=== PATIENT | female | born 1960 | race Asian ===

== ENCOUNTER 2025-03-29 16:15 | Outpatient (RCR) | payer OTHER, SELFPAY ==
--- NOTE | 2025-03-27 17:51 | PT.OIE ---
Current Diagnoses Other disorders of vestibular function, right ear (03/27/25) Sensorineural hearing loss, bilateral (03/27/25) Visit Care Team Role Provider Type Wil Gutiérrez DO Family Provider Non-Staff Primary Care Provider Specialty: Medical Address: [address] [place] [address] , [address], [place], [address] Email: Reyes Lazcano MD Attending Provider Physician Referring Provider Specialty: Ear, Nose, Throat Address: [address] [place] [address], [address] Email: [email or web address] Physical Therapy Initial Evaluation PT-OP-A Visit Information Start: 03/27/25 17:18 Freq: Status: Active Protocol: Document 03/27/25 16:15 DCW (Rec: 03/27/25 17:33 DCW [id number]) Out-Patient Physical Therapy Visit Information Visit Information Visit Type Initial Evaluation Visit Start Time 16:15 Visit Stop Time 17:05 Visit Number 1 Number of CLOTH CARRIER Visits 0 Evaluation Information Evaluation Date 03/27/25 PT-OP-B Current Condition Start: 03/27/25 17:18 Freq: Status: Active Protocol: Document 03/27/25 16:15 DCW (Rec: 03/27/25 17:33 DCW [id number]) Current Condition History of Current Condition Onset Date 2020 Current Complaints spinning, nausea, dizziness History of Current Pt is a 64 year old female presenting with a four year Condition history of occasional episodes of spinning, dizziness, and nausea. Symptoms worse with head movements and turning. Pt notes symptoms typically last hours, will usually go to sleep and they're better when she wakes up. Was previously seen in PT for four visits in 2022, provided with self-Jadyn and BDEs, which appear to have helped decrease frequency, however symptoms largely remain. VNG performed on 11/22/24, which uncovered a 38% right unilateral caloric weakness, as well as an audiogram showing right asymmetrical sensorineural hearing loss. PT-OP-C Subjective Start: 03/27/25 17:18 Freq: Status: Active Protocol: Document 03/27/25 16:15 DCW (Rec: 03/27/25 17:33 [facility] [id number]) OP-PT Subjective Patient Comments Patient Comments Pt brings in a detailed list of symptoms, with date, time, place, symptoms, and what she was doing at the time. Lists four episodes in 2020, six in 2021, 11 in 2022, seven in 2023, and only one so far in 2024. Patient Reported Improving Progress Patient Questionnaires Dizziness Handicap Inventory DHI Score 82% Other Questionnaire Name Falls Efficacy Scale - International: 26/64 and Score PT-OP-O Vestibular Start: 03/27/25 17:18 Freq: Status: Active Protocol: Document 03/27/25 16:15 DCW (Rec: 03/27/25 17:38 [facility] [id number]) Vestibular Assessment Auditory Tests Fu Test Within normal limits Rinne Test Negative Air Conduction Equal Results Visual Testing Smooth Pursuits Inconclusive Horizontal Smooth Pursuits Inconclusive Vertical Saccades Horizontal WNL Saccades Vertical WNL Heave Test Positive Right Thrust Head Positive Right Kel String Test WNL Positional Testing Ladi-Hallpike Negative Left,Negative Right Rolling Test Negative Left,Negative Right PT-OP-Q Treatments Start: 03/27/25 17:18 Freq: Status: Active Protocol: Document 03/27/25 16:15 DCW (Rec: 03/27/25 17:38 [facility] [id number]) Neuro Re-Education Treatment Vestibular Rehabilitation Corrective Saccades Details Eyes, then head Distance From Target Arm's length Speed as tolerated Position Seated X2 Viewing Details Head and target moving in opposite directions Distance From Target Arm's length Speed as tolerated Position Seated X1 Viewing Details Static target with head turns Distance From Target Arm's length Speed as tolerated Position Seated VOR Retraining Details Target and head move together Distance From Target Arm's length Speed as tolerated Position Seated PT-OP-T Assessment and Plan Start: 03/27/25 17:18 Freq: Status: Active Protocol: Document 03/27/25 16:15 DCW (Rec: 03/27/25 17:51 [facility] [id number]) Physical Therapy Assessment Rehab Potential Rehabilitation Good Potential Evaluation Complexity Number of Personal 3 or More Factors/ Comorbidities Number of Body 4 or More Systems Impaired Clinical Unstable Presentation at Evaluation Impairments Impairments Balance,Functional Activities,Functional Mobility, Vestibular,Visual Motor Goals Two Impairment Pt experiences symptoms with quick head movements Snf Goal (LTG) Pt to report being asymptomatic for the period of one full month LTG Duration 05/28/25 One Impairment Pt does not have an appropriate home exercise program Short Term Goal (STG Pt to be independent and compliant with an appropriate ) HEP STG Duration 04/27/25 Assessment Summary Assessment Pt presents with signs and symptoms consistent with referring diagnosis of right vestibulopathy. Pt experiences subjective symptoms of unsteadiness, dizziness, imbalance, and nausea, typically with quick head movements. Pt VNG suggestive of right-sided Labyrinthitis, which assessment today corroborates. Pt will likely benefit from vestibular therapy focusing on adaptation/habituation exercises, balance training, and functional mobility. Pt tolerated new HEP exercises well. Physical Therapy Plan Frequency and Duration Frequency of 2x/Week Treatment Plan of Care Start 03/27/25 Date Plan of Care End 05/28/25 Date Therapeutic Interventions Therapeutic Balance Training,Canalithic Repositioning,Gait Training Interventions ,Home Exercise Program,Manual Therapy,Neuromuscular Re- education,Patient/Caregiver Education,Self-Care/Home Management,Soft Tissue Mobilization,Therapeutic Activities,Therapeutic Exercises,Vestibular Rehabilitation Next Visit Focus/Plan Next Note Type Treatment Note Next Visit Plan Vestibular rehab, oculomotor exercises, balance training
--- NOTE | 2025-03-27 17:51 | PT.OPPOC ---
Physical, Occupational & Speech Therapy At [facility] Current Diagnoses Other disorders of vestibular function, right ear (03/27/25) Sensorineural hearing loss, bilateral (03/27/25) Visit Care Team Role Provider Type Wil Gutiérrez DO Family Provider Non-Staff Primary Care Provider Specialty: Medical Address: [address] [place], [place] [address], [address], [place], [address] Email: Reyes Lazcano MD Attending Provider Physician Referring Provider Specialty: Ear, Nose, Throat Address: [address] [place] [address], [address] Email: [email or web address] Plan Of Care PT-OP-B Current Condition Start: 03/27/25 17:18 Freq: Status: Active Protocol: Document 03/27/25 16:15 DCW (Rec: 03/27/25 17:33 DCW [id number]) Current Condition History of Current Condition Onset Date 2020 Current Complaints spinning, nausea, dizziness History of Current Pt is a 64 year old female presenting with a four year Condition history of occasional episodes of spinning, dizziness, and nausea. Symptoms worse with head movements and turning. Pt notes symptoms typically last hours, will usually go to sleep and they're better when she wakes up. Was previously seen in PT for four visits in 2022, provided with self-Jadyn and BDEs, which appear to have helped decrease frequency, however symptoms largely remain. VNG performed on 11/22/24, which uncovered a 38% right unilateral caloric weakness, as well as an audiogram showing right asymmetrical sensorineural hearing loss. 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 Pt experiences subjective symptoms of unsteadiness, dizziness, imbalance, and nausea, typically with quick head movements. Pt VNG suggestive of right-sided Labyrinthitis, which assessment today corroborates. Pt will likely benefit from vestibular therapy focusing on adaptation/habituation exercises, balance training, and functional mobility. Pt tolerated new HEP exercises well. Physical Therapy Plan Frequency and Duration Frequency of 2x/Week Treatment Plan of Care Start 03/27/25 Date Plan of Care End 05/28/25 Date Therapeutic Interventions Therapeutic Balance Training,Canalithic Repositioning,Gait Training Interventions ,Home Exercise Program,Manual Therapy,Neuromuscular Re- education,Patient/Caregiver Education,Self-Care/Home Management,Soft Tissue Mobilization,Therapeutic Activities,Therapeutic Exercises,Vestibular Rehabilitation Next Visit Focus/Plan Next Note Type Treatment Note Next Visit Plan Vestibular rehab, oculomotor exercises, balance training Plan of Care Dates Plan of Care Start Date 03/27/25 Plan of Care End Date 05/28/25 Electronically Signed by: Aroldo Mcnally, PT 03/27/25 [id number] If you are in agreement with this Plan of Care, please return a signed and dated copy. I have reviewed this Plan of Care and certify that the skilled therapy services above are required to meet the patient?s needs. Physician Signature Date Printed Name and Credentials Clinical Instructor Signature Printed Name and Credentials
--- NOTE | 2025-03-29 17:12 | PT.OTN ---
Current Diagnoses Other disorders of vestibular function, right ear (03/29/25) Sensorineural hearing loss, bilateral (03/29/25) Physical Therapy Treatment Note PT-OP-A Visit Information Start: 03/27/25 17:18 Freq: Status: Active Protocol: Document 03/29/25 16:15 DCW (Rec: 03/29/25 17:12 DCW [id number]) Out-Patient Physical Therapy Visit Information Visit Information Visit Type Treatment Note Visit Start Time 16:15 Visit Stop Time 17:00 Visit Number 2 Number of CONVEYOR TENDER Visits 0 Evaluation Information Evaluation Date 03/27/25 PT-OP-B Current Condition Start: 03/27/25 17:18 Freq: Status: Active Protocol: Document 03/27/25 16:15 DCW (Rec: 03/27/25 17:33 DCW [id number]) Current Condition History of Current Condition Onset Date 2020 Current Complaints spinning, nausea, dizziness History of Current Pt is a 64 year old female presenting with a four year Condition history of occasional episodes of spinning, dizziness, and nausea. Symptoms worse with head movements and turning. Pt notes symptoms typically last hours, will usually go to sleep and they're better when she wakes up. Was previously seen in PT for four visits in 2022, provided with self-Jadyn and BDEs, which appear to have helped decrease frequency, however symptoms largely remain. VNG performed on 11/22/24, which uncovered a 38% right unilateral caloric weakness, as well as an audiogram showing right asymmetrical sensorineural hearing loss. PT-OP-C Subjective Start: 03/27/25 17:18 Freq: Status: Active Protocol: Document 03/29/25 16:15 DCW (Rec: 03/29/25 17:12 DCW [id number]) OP-PT Subjective Patient Comments Patient Comments Tried her homework yesterday and okay, and I think I'm okay. PT-OP-O Vestibular Start: 03/27/25 17:18 Freq: Status: Active Protocol: Document 03/29/25 16:15 DCW (Rec: 03/29/25 17:12 DCW [id number]) Vestibular Assessment Vestibular Function Tests CTSIB Position 1 30 - Minimal sway CTSIB Position 2 30 - Minimal sway CTSIB Position 3 30 - Mild sway CTSIB Position 4 30 - Mild sway CTSIB Position 5 30 - Mild sway PT-OP-Q Treatments Start: 03/27/25 17:18 Freq: Status: Active Protocol: Document 03/29/25 16:15 DCW (Rec: 03/29/25 17:12 DCW [id number]) Gym Equipment Shuttle Balance Red Details WBOS, Staggered Neuro Re-Education Treatment Balance Activities Dynamic Gait Details Dynamic gait in hallway Comments Head Turns: Horizontal/Vertical (110 bpm) Diagonal (90 bpm) Circles (no metronome) Vestibular Rehabilitation Corrective Saccades Details Eyes, then head Distance From Target Arm's length Speed as tolerated Position Seated X2 Viewing Details Head and target moving in opposite directions Distance From Target Arm's length Speed as tolerated Position Seated X1 Viewing Details Static target with head turns Distance From Target Arm's length Speed as tolerated Position Seated VOR Retraining Details Target and head move together Distance From Target Arm's length Speed as tolerated Position Seated PT-OP-T Assessment and Plan Start: 03/27/25 17:18 Freq: Status: Active Protocol: Document 03/29/25 16:15 DCW (Rec: 03/29/25 17:12 DCW [id number]) Physical Therapy Assessment Impairments Impairments Balance,Functional Activities,Functional Mobility, Vestibular,Visual Motor Goals Two Impairment Pt experiences symptoms with quick head movements Garment 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 Pt tolerated activities today very well, no imbalance with head turns, did well with balance challenges and on the Shuttle Balance. Pt feels comfortable with new activities, and as she has not been having symptoms frequently recently, feels comfortable with discharge at this time. Will need a new referral in order to return. Physical Therapy Plan Frequency and Duration Frequency of 2x/Week Treatment Plan of Care Start 03/27/25 Date Plan of Care End 05/28/25 Date Therapeutic Interventions Therapeutic Balance Training,Canalithic Repositioning,Gait Training Interventions ,Home Exercise Program,Manual Therapy,Neuromuscular Re- education,Patient/Caregiver Education,Self-Care/Home Management,Soft Tissue Mobilization,Therapeutic Activities,Therapeutic Exercises,Vestibular Rehabilitation Next Visit Focus/Plan Next Note Type Treatment Note Next Visit Plan Vestibular rehab, oculomotor exercises, balance training
== END 2025-03-30 08:55 | disposition home or self-care (01) ==
LOC: PHYS 16:15
PROVIDERS: Family Provider Family Medicine; PCP Family Medicine; Referring Provider Otolaryngology; Visit Provider Otolaryngology
DX: H81.8X1 Other disorders of vestibular function, right ear (principal); H90.3 Sensorineural hearing loss, bilateral
CPT/HCPCS: 97112